=== PATIENT | male | born 1970 | race Caucasian/White ===

== ENCOUNTER 2016-08-30 08:28 | Day surgery (SDC) | payer OTHER ==
[~2016-08-30 08:28] MED LIST: LIDOCAINE 2% VISCOUS(20 MG/1 ML) - 15 ML UD CUP PO ONE; LIDOCAINE HCL/PF 2% (20 MG/ML) - 5 ML SYRINGE ONE; LIDOCAINE W/ SODIUM BICARB 0.5 ML SYR ONE; Lactated Ringers 1,000 ML PRIMARY IV ONE; MIDAZOLAM 5 MG/1 ML ONE; fentaNYL Inj 100 MCG/2 ML VIAL ONE
[2016-08-30] MEDS ORDERED: Lactated Ringers 1,000 ML PRIMARY IV ONE (09:42)
--- NOTE | 2016-08-30 10:08 | GEN.OPNOTE ---
EGD Operative Note Surgery Date: 08/30/16 Preoperative Diagnosis: GERD. Postoperative Diagnosis: GERD. Procedure: Esophagogastroduodenoscopy with biopsy. Surgeon: Bi Herrera MD Anesthesia Provider: Danny Hardin CRNA Anesthesia Type: MAC Indications: Long-standing reflux. Findings: Esophagus: [Normal] GE Junction : [Some inflammatory changes consistent with reflux. Biopsies taken. Small hiatal hernia.] Fundus : [Normal] Body : [Normal] Prepyloric : [Erythema. Biopsies taken.] Small Intestine : [Friability otherwise normal.] A lubricated flexible upper endoscope was inserted and passed through the esophagus and stomach into the duodenum. Duodenum and duodenal bulb were unremarkable except the mucosa was somewhat friable. Pyloric channel was widely patent. The scope was withdrawn into the antrum. There was erythema and friability. Multiple biopsies were taken. Hemostasis was assured. The scope was retroflexed. The rest of the body of the stomach was unremarkable. The scope was straightened. Air was aspirated. The scope was withdrawn to into the distal esophagus there was a 2 cm hiatal hernia. There is some inflammatory changes at the Z line and multiple biopsies were taken. Hemostasis was assured. The scope was withdrawn through the remainder of a normal-appearing esophagus and brought through the hypopharynx under suction completing the procedure. Patient tolerated the entire procedure well without complication. He was taken to outpatient surgery in stable condition Follow be in my office on an as-needed basis. We will call the biopsy results when available. Patient has started his pantoprazole 40 mg by mouth daily. Estimated Blood Loss (mL): 2 Fluids: 1400 mL of crystalloid. Pathology: Antral and distal esophageal biopsies sent to pathology. Complications: none.
[2016-08-30 13:48] VITALS: TEMP 97.2
[2016-08-30 14:18] VITALS: RESP 14
== END 2016-08-30 10:42 | disposition home or self-care (01) ==
LOC: SDSC 08:28
PROVIDERS: ATTEND Surgery
DX: K21.0 Gastro-esophageal reflux disease with esophagitis (principal)
CPT/HCPCS: 43239; J2704; J3010; J2001; J2250; J7120